=== PATIENT | male | born 2000 | race Caucasian/White ===

== ENCOUNTER 2022-04-24 09:59 | Emergency (ER) | payer OTHER ==
[2022-04-24 10:07] VITALS: RESP 18
--- NOTE | 2022-04-24 11:33 | XR ---
EXAMINATION TYPE: XR chest 2V DATE OF EXAM: 04/24/2022 11:21 AM COMPARISON: none TECHNIQUE: XR chest 2V Frontal and lateral views of the chest. CLINICAL INDICATION:Male, 21 years old with history of Chest Pain; FINDINGS: Lungs/Pleura: There is no evidence of pleural effusion, focal consolidation, or pneumothorax. Pulmonary vascularity: Unremarkable. Heart/mediastinum: Cardiomediastinal silhouette is unremarkable. Musculoskeletal: No acute osseous pathology. IMPRESSION: No acute cardiopulmonary disease/process.
[2022-04-24 11:34] LABS: Basophils % (A) 0 %; Eosinophils # (A) 0.1 k/uL (0-0.7); Eosinophils % (A) 1 %; HCT 43.5 % (39.0-53.0); Lymphocytes % (A) 15 %; MCH 29.7 pg (25.0-35.0); MCHC 34.5 g/dL (31.0-37.0); MCV 86.2 fL (80.0-100.0); Mean Platelet Volume 7.6; Monocytes # (A) 0.5 k/uL (0-1.0); Monocytes % (A) 7 %; Neutrophils # (A) 5.3 k/uL (1.3-7.7); Neutrophils % (A) 74 %; Platelet Count 237 k/uL (150-450); RBC 5.05 m/uL (4.30-5.90); RDW 12.6 % (11.5-15.5); WBC 7.1 k/uL (3.8-10.6)
[2022-04-24 11:41] LABS: Partial Thromboplastin Time 24.9 sec (22.0-30.0); Prothrombin Time 10.5 sec (9.0-12.0)
[2022-04-24 11:46] LABS: ALT 40 U/L (4-49); AST 35 U/L (17-59); African American GFR (CKD) >90 (>60 ml/min/1.73 sqM); Albumin 4.7 g/dL (3.5-5.0); Alkaline Phosphatase 115 U/L (38-126); Anion Gap 7 mmol/L; Blood Urea Nitrogen 16 mg/dL (9-20); Calcium 9.4 mg/dL (8.4-10.2); Carbon Dioxide 26 mmol/L (22-30); Chloride 107 mmol/L (98-107); Glucose 89 mg/dL (74-99); Lipase 61 U/L (23-300); Magnesium 2.1 mg/dL (1.6-2.3); Non-African American GFR(CKD) >90 (>60 ml/min/1.73 sqM); Potassium 4.4 mmol/L (3.5-5.1); Sodium 140 mmol/L (137-145); Total Bilirubin 0.9 mg/dL (0.2-1.3); Total Protein 7.5 g/dL (6.3-8.2)
--- NOTE | 2022-04-24 12:37 | ED ---
Chest Pain HPI - General Chief Complaint: Chest Pain Stated Complaint: Abnormal EKG, sent by Time Seen by Provider: 04/24/22 10:32 Source: patient Mode of arrival: ambulatory Limitations: no limitations - History of Present Illness Initial Comments: 21-year-old previously healthy male presents emergency department reporting chest pain. States he has had some reflux and left-sided chest pain which has been going on for the past couple of months. He went into an urgent care as he did have some of the pain this morning. They performed an EKG. They stated that he had an abnormal EKG and was attempting to transfer the patient to the hospital in an ambulance. He did not want to go in ambulance and therefore he drove himself. He denies any history of cardiac disease. Does have an aunt that had heart problems in her 40s. He denies any current chest pain. No shortness of breath. No calf pain or swelling. No other alleviating, precipitating or modifying factors - Related Data Home Medications Medication Instructions Recorded Confirmed Multivitamins, Thera [Multivitamin 1 tab PO DAILY 04/24/22 04/24/22 (formulary)] Allergies Allergy/AdvReac Type Severity Reaction Status Date / Time No Known Allergies Allergy Verified 04/24/22 12:19 Review of Systems ROS Statement: Those systems with pertinent positive or pertinent negative responses have been documented in the HPI. ROS Other: All systems not noted in ROS Statement are negative. EKG Findings - EKG Comments: EKG Findings:: EKG demonstrates sinus rhythm with a rate of 68. MA interval 150. QRS 114. QTC of 418. No acute ST segment elevations or depressions. EKG interpreted by myself Past Medical History Past Medical History: No Reported History History of Any Multi-Drug Resistant Organisms: None Reported Past Surgical History: No Surgical Hx Reported Past Psychological History: No Psychological Hx Reported Smoking Status: Never smoker Past Alcohol Use History: None Reported Past Drug Use History: None Reported General Exam Limitations: no limitations General appearance: alert, in no apparent distress Head exam: Present: atraumatic, normocephalic, normal inspection Eye exam: Present: normal appearance, PERRL, EOMI. Absent: scleral icterus, conjunctival injection, periorbital swelling ENT exam: Present: normal exam, mucous membranes moist Neck exam: Present: normal inspection. Absent: tenderness, meningismus, lymphadenopathy Respiratory exam: Present: normal lung sounds bilaterally. Absent: respiratory distress, wheezes, rales, rhonchi, stridor Cardiovascular Exam: Present: regular rate, normal rhythm, normal heart sounds. Absent: systolic murmur, diastolic murmur, rubs, gallop, clicks GI/Abdominal exam: Present: soft, normal bowel sounds. Absent: distended, tenderness, guarding, rebound, rigid Extremities exam: Present: normal inspection, full ROM, normal capillary refill. Absent: tenderness, pedal edema, joint swelling, calf tenderness Back exam: Present: normal inspection Neurological exam: Present: alert, oriented X3, CN II-XII intact Psychiatric exam: Present: normal affect, normal mood Skin exam: Present: warm, dry, intact, normal color. Absent: rash Course Vital Signs 04/24/22 04/24/22 10:05 12:51 Temperature 98.4 F 97.9 F Pulse Rate 78 53 L Respiratory 18 18 Rate Blood Pressure 143/68 133/83 O2 Sat by Pulse 99 100 Oximetry Chest Pain MDM - [facility] Upon arrival patient was placed into room 16. Thorough history and physical exam was performed. Patient placed on continuous pulse ox and cardiac monitoring. 12-lead EKG was obtained. I did compare the patient's EKG from the urgent care to my EKG. I do not see that the patient has any acute findings at this time. Results of laboratory studies are discussed with the patient. I feel comfortable discharging the patient home at this time. Instructed that he needs to get an echo and Holter monitoring. Return to the emergency department she had worsening symptoms. Patient agreeable to treatment plan discharge home in stable condition Disposition Clinical Impression: Chest pain Disposition: HOME SELF-CARE Condition: Stable Instructions (If sedation given, give patient instructions): Chest Pain (ED) Additional Instructions: Your EKG is normal. I recommend that you follow-up with your primary care doctor. An echo and Holter monitor is warranted. Please return for any new or worsening symptoms Is patient prescribed a controlled substance at d/c from ED?: No Referrals: Halina Chong III, MD [Primary Care Provider] - 1-2 days Time of Disposition: 12:37
[2022-04-24 12:53] VITALS: BP 133/83; PULSE 53; TEMP 97.9
== END 2022-04-24 12:52 | disposition home or self-care (01) ==
LOC: EC 09:59
DX: R07.9 Chest pain, unspecified (principal)
CPT/HCPCS: 36415; 71046; 80053; 83690; 83735; 84484; 85025; 85610; 85730; 93005; 99285

== ENCOUNTER → 2022-10-01 | Outpatient (CLI) | payer OTHER ==
--- NOTE | 2022-10-01 13:26 | CA ---
Exercise Stress Test Report Name: lAexandre Nelson Exam Date: 10/01/2022 10:55 Exam Location: [place] Stress Ht (in): 68 Wt (lb): 155 BSA: 1.83 Ordering Phys: Halina Chong MD Referring Phys: yesica, Technologist: Davi Storm Age: 22 Gender: M : 2000 Procedure CPT: Indications: R07.89 R42 I36.1 ICD-10 Codes: Patient History: Chest pain, vertigo and syncope Medications: Meds past 24 hrs: Pretest Chest Pain: STRESS TEST Quique Protocol Exercise Duration (min:sec): 15:[address] Depressions (mm): Angina Score: Han Score: Resting HR (bpm): 79 Peak HR (bpm): 182 Resting BP (mmHg): 132 / 52 Peak BP (mmHg): 212 / 69 MPHR: 198 Target HR: 168 % MPHR: 92 METS: 15.2 Total Dose: Peak Dose: Atropine: Double Product: 56290 BP Response: Stress Termination: Reached target heart rate Stress Symptoms: No chest pain or symptoms Stress Summary: ECG ANALYSIS Resting ECG: Stress ECG: CONCLUSIONS Excellent exercise tolerance Excellent augmentation in the blood pressure and heart rate in response to exercise Normal EKG in response to exercise Dr. Wilner Duke MD (Electronically Signed) Final Date: 01 October 2022 13:25
--- NOTE | 2022-10-01 18:39 | CA ---
Transthoracic Echo Report Name: Alexandre Nelson Age: 22 Gender: M : 2000 Exam Date: 10/01/2022 11:27 Exam Location: [place] Echo Ht (in): 68 Wt (lb): 155 Ordering Physician: Halina Chong MD Attending/Referring Phys: ARIS, Arlette [employer] Laura Bacon RDCS Procedure CPT: Indications: R07.89 R42 I36.1 Cardiac Hx: Technical Quality: Good Contrast 1: Total Dose (mL): Contrast 2: Total Dose (mL): MEASUREMENTS (Male / Female) Normal Values 2D ECHO LV Diastolic Diameter PLAX 4.3 cm 4.2 - 5.9 / 3.9 - 5.3 cm LV Systolic Diameter PLAX 1.7 cm IVS Diastolic Thickness 0.9 cm 0.6 - 1.0 / 0.6 - 0.9 cm LVPW Diastolic Thickness 1.0 cm 0.6 - 1.0 / 0.6 - 0.9 cm LV Relative Wall Thickness 0.4 RV Internal Dim ED PLAX 2.3 cm LA Volume 28.0 cm??? 18 - 58 / 22 - 52 cm??? M-MODE Aortic Root Diameter MM 2.5 cm LA Systolic Diameter MM 2.1 cm LA Ao Ratio MM 0.9 AV Cusp Separation MM 0.0 cm DOPPLER AV Peak Velocity 170.5 cm/s AV Peak Gradient 11.6 mmHg AV Mean Velocity 102.1 cm/s AV Mean Gradient 5.2 mmHg AV Velocity Time Integral 28.7 cm LVOT Peak Velocity 131.5 cm/s LVOT Peak Gradient 6.9 mmHg LVOT Velocity Time Integral 22.3 cm Mitral E Point Velocity 99.3 cm/s Mitral A Point Velocity 96.1 cm/s Mitral E to A Ratio 1.0 MV Deceleration Time 107.4 ms MV E' Velocity 13.1 cm/s Mitral E to MV E' Ratio 7.6 TR Peak Velocity 256.2 cm/s TR Peak Gradient 26.2 mmHg Right Ventricular Systolic Press 31.3 mmHg FINDINGS Left Ventricle Normal left ventricular size, wall thickness, systolic function with no obvious regional wall motion abnormalities. Normal left ventricular diastolic filling pattern for age. The ejection fraction is visually estimated at 55-60 %. Right Ventricle The right ventricle is normal in size and function. Right ventricular systolic pressure within normal limits. Right Atrium The right atrium is normal in size. Left Atrium The left atrium is normal in size. Mitral Valve Structurally normal mitral valve without significant stenosis or prolapse. There is no mitral regurgitation. Aortic Valve Structurally normal aortic valve without significant sclerosis or stenosis. There is no aortic regurgitation. Tricuspid Valve Structurally normal tricuspid valve without significant stenosis. Pulmonary artery systolic pressure is normal. Mild tricuspid regurgitation. Pulmonic Valve Structurally normal pulmonic valve without significant stenosis. There is no pulmonic regurgitation. Pericardium Normal pericardium without effusion. Aorta Normal aortic root dimension. CONCLUSIONS Normal LV systolic function Normal intracardiac valves Previewed by: Dr. Wilner Duke MD (Electronically Signed) Final Date: 01 October 2022 18:38
== END | disposition home or self-care (01) ==
LOC: RADNMMAIN 10:26
PROVIDERS: ATTEND Family Medicine
DX: R07.89 Other chest pain (principal); I36.1 Nonrheumatic tricuspid (valve) insufficiency
CPT/HCPCS: 93017; 93306